=== PATIENT | female | born 1940 | race Caucasian/White ===

== ENCOUNTER 2020-10-20 11:35 | Emergency (ER) | payer OTHER ==
[~2020-10-20] VITALS: Ht 157.5 cm; Wt 61.7 kg
[2020-10-20] MEDS ORDERED: COZAAR100 MG (11:45)
[2020-10-20] MEDS ORDERED: CARBAMAZEPINE200 M3 (11:45)
[2020-10-20] MEDS ORDERED: AZOR 5-20 MG T1 EACH (11:45)
[2020-10-20] MEDS ORDERED: LIPITOR40 M1 (11:46)
[2020-10-20] MEDS ORDERED: SOLARAZE100 GM (11:46)
== END 2020-10-20 15:55 | disposition home or self-care (01) ==
LOC: ER 11:35
DX: R53.81 Other malaise (principal); R42 Dizziness and giddiness